=== PATIENT | female | born 1970 | race Caucasian/White ===

== ENCOUNTER 2017-06-13 20:36 | Emergency (ER) | payer BC ==
[2017-06-13 21:26] LABS: APPEARANCE SLT CLOUDY (CLEAR); BASOPHILS 0.1 % (0-2); BILIRUBIN NEGATIVE (NEGATIVE); COLOR DK YELLOW (YELLOW); EOSINOPHILS 0.6 % (0-7); GLUCOSE NEGATIVE (NEGATIVE); HEMATOCRIT 44.7 % (36.0-48.0); HEMOGLOBIN 15.4 g/dL (12-16); IMMATURE GRANULOCYTES 0.2 % (0-5); KETONE NEGATIVE (NEGATIVE); LYMPHOCYTES 35.7 % (15-50); MCHC 34.5 g/dL (31.0-37.0); MCV 95.9 fL (80.0-100.0); MEAN PLATELET VOLUME 9.9 fL (7.4-10.4); MONOCYTES 6.7 % (2-11); NEUTROPHILS 56.7 % (40-80); NITRITE NEGATIVE (NEGATIVE); PLATELET COUNT 221 10x3/uL (130-400); PROTEIN NEGATIVE (NEGATIVE); RBC 4.66 10x6/uL (4.00-5.40); RDW 14.2 % (11.5-14.5); UROBILINOGEN NORMAL (NORMAL); WBC 10.1 10x3/uL (4.8-10.8)
[2017-06-13 21:29] LABS: BACTERIA FEW /hpf (NONE SEEN); EPITHELIAL CELLS 0-5 /hpf (0-5); MUCUS <1+ /lpf (NONE SEEN)
[2017-06-13 21:38] LABS: ALBUMIN 3.6 g/dL (3.4-5.0); ALKALINE PHOSPHATASE 81 U/L (46-116); ALT (SGPT) 19 U/L (10-68); AMYLASE - SERUM 45 U/L (25-115); BILIRUBIN - TOTAL 0.34 mg/dL (0.2-1.3); CALC OSMOLALITY 280 mosm/kg (275-300); CALCIUM 8.8 mg/dL (8.5-10.1); CARBON DIOXIDE 27.2 mmol/L (21.0-32.0); CHLORIDE - SERUM 106 mmol/L (98-107); CREATININE - SERUM 0.8 mg/dL (0.6-1.3); GLUCOSE 100 mg/dL (74-106); LIPASE 102 U/L (73-393); POTASSIUM - SERUM 3.9 mmol/L (3.5-5.1); PROTEIN - SERUM 7.2 g/dL (6.4-8.2); SODIUM 142 mmol/L (136-145); UREA NITROGEN 8 mg/dL (7-18); eGFR NON AFRICAN AMERICAN 82 mL/min (90-120)
== END 2017-06-14 01:29 | disposition home or self-care (01) ==
LOC: D.ER 20:36
PROVIDERS: Family Medicine
DX: R10.9 Unspecified abdominal pain (principal); M32.9 Systemic lupus erythematosus, unspecified